=== PATIENT | female | born 1980 | race Asian ===

== ENCOUNTER 2016-05-22 14:54 | Emergency (ER) | payer BC ==
[~2016-05-22] VITALS: Ht 165.1 cm; Wt 72.5 kg
[~2016-05-22 14:54] MED LIST: ALEVE220 MG PO; CIPRO500 MG PO; Claritin,Alavart PO; ESCITALOPRAM OX10 MG PO; FLAGYL500 MG PO; NAPROXEN500 MG PO; NORCO 5/3251 TABLET PO; TESSALON200 MG PO; ZYRTEC10 M2 PO
[2016-05-22] MEDS ORDERED: PREDNISONE20 MG PO (16:48)
[2016-05-22] MEDS ORDERED: NAPROXEN500 MG PO (16:48)
[2016-05-22] MEDS ORDERED: VALIUM5 MG PO (16:48)
[2016-05-22 17:05] VITALS: BP 170/99
== END 2016-05-22 17:16 | disposition home or self-care (01) ==
LOC: EME 14:54 → EXP 14:54
DX: M54.16 Radiculopathy, lumbar region (principal)
CPT/HCPCS: 99281; 99283; J1885; J7512

== ENCOUNTER 2016-06-16 09:28 | Day surgery (SDC) | payer BC ==
[~2016-06-16] VITALS: Ht 162.6 cm; Wt 63.6 kg
[~2016-06-16 09:28] MED LIST changes: +CYCLOBENZAPRINE10 MG PO; +GUMMI BEAR MUL1 EACH PO; +PREDNISONE20 MG PO; +ULTRAM50 MG PO; +VALIUM5 MG PO
[2016-06-16 10:29] LABS: HEMATOCRIT 39.4 % (36.0-46.0); MCH 29.2 PG (29.0-34.0); MCHC 32.7 G/DL (30.0-36.0); MCV 89.1 FL (83-99); MEAN PLAT.VOLUME 10.7 uM^3 (9.5-12.4); PLATELET COUNT 214 K/uL (156-360); RBC DIS.WIDTH-CV 12.2 % (11.8-14.6); RBC DIS.WIDTH-SD 40.1 % (39-53); RED BLOOD COUNT 4.42 M/uL (3.80-5.20); WHITE BLOOD COUNT 5.6 K/uL (4.1-10.2)
[2016-06-16 10:38] VITALS: BP 138/85
[2016-06-16 16:58] VITALS: BP 151/96
[2016-06-16 18:00] VITALS: BP 127/70
[2016-06-16 20:03] VITALS: BP 123/88
== END 2016-06-16 20:20 | disposition home or self-care (01) ==
LOC: SDC 09:28 → EDSTATUS 14:20 → SDC 14:20
PROVIDERS: Neurological Surgery
DX: M51.16 Intervertebral disc disorders with radiculopathy, lumbar region (principal); M48.06 Spinal stenosis, lumbar region
CPT/HCPCS: 72020; 76000; 80156; 80306 90; 85027; J0131; J0360; J0690; J1100; J1170; J2250; J2405; J2710; S0020